=== PATIENT | male | born 2000 | race Caucasian/White ===

== ENCOUNTER 2019-01-08 22:06 | Emergency (ER) | payer MEDICAID, OTHER ==
[~2019-01-08] VITALS: Ht 180.3 cm; Wt 78.9 kg
[~2019-01-08 22:06] MED LIST: CEFP500T4 PO; CEPH500C PO; GUAI1TBM7; HYDR-3714 PO; HYDR1TAB PO; METH4TAB PO; NAPR-915 PO; ONDA8TAB13 PO; PHEN100T17 PO
--- NOTE | 2019-01-08 22:38 | ED General ---
General Chief Complaint: Laceration Stated Complaint: FACE LAC Nursing Triage Note: Pt presents with a small laceration near right eyebrow caused from a piece of wood. Nursing Sepsis Screen: No Definite Risk Source of Information: Patient Exam Limitations: No Limitations History of Present Illness Date Seen by Provider: January 08, 2019 Time Seen by Provider: 22:14 Initial Comments This 18-year-old young man presents to the emergency room with a laceration on the lateral aspect of his right eyebrow. He jumped into a bed with a broken headboard. The footboard also broke when he jumped into it. He went to the floor and a sharp piece of wood lacerated his brow. He denies any signs or symptoms of concussion such as nausea, headache, loss of consciousness, etc. He had his last tetanus immunization 4 years ago. He has minimal bleeding at this time but states it "bled a lot" at home. Allergies and Home Medications Allergies Coded Allergies: No Known Drug Allergies (Unverified , 04/14/09) Home Medications Cephalexin Monohydrate 500 Mg Capsule, 1 EACH PO TID Prescribed by: NABEEL GLOVER on 10/31/142029 Hydrocodone Bit/Acetaminophen 1 Tab Tablet, 1 TAB PO Q4H PRN for PAIN Prescribed by: NABEEL GLOVER on 10/31/142029 Naproxen 500 Mg Tablet, 500 MG PO BID Prescribed by: KEVIN JENSEN on 05/14/15229 Ondansetron 8 Mg Tab.rapdis, 8 MG PO Q6H PRN for NAUSEA/VOMITING Prescribed by: NABEEL GLOVER on 10/31/142029 Phenazopyridine Hcl 100 Mg Tablet, 1 EACH PO TID PRN PRN for PAIN Prescribed by: NABEEL GLOVER on 10/31/142029 Patient Home Medication List Home Medication List Reviewed: No Review of Systems Review of Systems Constitutional: no symptoms reported EENTM: see HPI Respiratory: no symptoms reported Gastrointestinal: no symptoms reported Genitourinary: no symptoms reported Musculoskeletal: no symptoms reported Skin: see HPI Psychiatric/Neurological: No Symptoms Reported Past Sebmknh-Luhjts-Ucefsb Hx Past Med/Social Hx: Reviewed Nursing Past Med/Soc Hx Patient Social History Alcohol Use: Denies Use Recreational Drug Use: No 2nd Hand Smoke Exposure: Yes Recent Foreign Travel: No Contact w/Someone Who Travel: No Recent Infectious Disease Expo: No Recent Hopitalizations: No Immunizations Up To Date Tetanus Booster (TDap): Less than 5yrs PED Vaccines UTD: Yes Seasonal Allergies Seasonal Allergies: No Past Medical History Surgeries: No Respiratory: Yes Asthma Cardiac: No Neurological: No Reproductive Disorders: No Genitourinary: No Gastrointestinal: No Musculoskeletal: Yes (RIGHT HAND BOXER'S FRACTURE) Fractures Endocrine: No HEENT: No Cancer: No Psychosocial: Yes ADD/ADHD Integumentary: No Blood Disorders: No Family Medical History Renal Disease Physical Exam Vital Signs Vital Signs - First Documented 01/08/19 22:10 Temp 98.0 B/P (MAP) 145/79 (101) Pulse Ox 96 Capillary Refill : Less Than 3 Seconds Height, Weight, BMI Height: 5'11.00" Weight: 174lbs. 6.0oz. [id number]; BMI Method:Stated General Appearance: No Apparent Distress, WD/WN HEENT: PERRL/EOMI, Other (shallow but gaping 1 cm laceration at the lateral edge of the right brow with mild localized swelling. There is slight oozing of blood.) Neck: Normal Inspection Respiratory: Lungs Clear, Normal Breath Sounds, No Accessory Muscle Use Cardiovascular: Regular Rate, Rhythm, No Murmur Neurologic/Psychiatric: Alert, Oriented x3, No Motor/Sensory Deficits, Normal Mood/Affect, inspector poising II-XII Norm as Tested Skin: Normal Color, Warm/Dry, Other (laceration as described above) Procedures/Interventions Wound Location: Face Other Wound Location Lateral edge of right brow Wound Length (cm): 1 Wound's Depth, Shape: superficial Wound Explored: clean Other Closure Supply: Wound Adhesive Progress Wound was cleaned with sterile saline and chlorhexidine soap. Skinafix glue was used to approximate the wound. Skin edges were approximated well and patient tolerated the procedure well. Discharge instructions reviewed with patient. Tetanus immunization was up-to-date. Progress/Results/Core Measures Suspected Sepsis Recent Fever Within 48 Hours: No Infection Criteria Present: None New/Unexplained Altered Menta: No Sepsis Screen: No Definite Risk SIRS Temperature:98.0 Pulse: Respiratory Rate: Blood Pressure 145 /79 Mean: 101 Results/Orders Vital Signs/I&O 01/08/19 22:10 Temp 98.0 B/P (MAP) 145/79 (101) Pulse Ox 96 Capillary Refill : Less Than 3 Seconds Blood Pressure Mean: 101 Departure Impression Primary Impression: Laceration of face Qualified Codes: S01.81XA - Laceration without foreign body of other part of head, initial encounter Disposition: 01 HOME, SELF-CARE Condition: Improved Departure-Patient Inst. Decision time for Depature: 10:30 Referrals: [facility] (PCP/Family) Primary Care Physician Patient Instructions: Laceration Repair With Glue (DC) Add. Discharge Instructions: Keep the wound clean and dry except for normal showering. Do not scrub directly over the glue. Allow the glue to slough off naturally. Do not peel away. You may trim loose edges with a small paroxysmal or fingernail clippers taking care not to cut your skin. Monitor the wound for signs of infection such as increasing redness, increasing pain, increasing swelling, puslike drainage, or fever. Return to care promptly if you notice any of these symptoms. Do not submerge for the next week or until wound is healed. You may use Tylenol and/or ibuprofen for pain. Avoid direct sunlight is much as possible over the next few months to prevent discoloration of the scar. Scarring should fade with time. Use sunscreen if exposure to direct sunlight cannot be avoided. All discharge instructions reviewed with patient and/or family. Voiced understanding. MARLENA ROY MD January 08, 2019 22:38
[2019-01-08 22:50] VITALS: BP 145/79
== END 2019-01-08 22:53 | disposition home or self-care (01) ==
LOC: EDUNIT# 22:06 → ER 22:07
DX: S01.111A Laceration without foreign body of right eyelid and periocular area, initial encounter (principal); F90.9 Attention-deficit hyperactivity disorder, unspecified type; J45.909 Unspecified asthma, uncomplicated; W26.8XXA Contact with other sharp object(s), not elsewhere classified, initial encounter; Y92.009 Unspecified place in unspecified non-institutional (private) residence as the place of occurrence of the external cause; Y93.39 Activity, other involving climbing, rappelling and jumping off